=== PATIENT | female | born 1990 | race Asian ===

== ENCOUNTER 2019-06-02 18:25 | Emergency (ER) | payer OTHER ==
--- NOTE | 2019-06-02 19:07 | ED ---
Laceration/Wound HPI - HPI Summary HPI Summary: Patient is a 29-year-old female here with a left fifth finger laceration. Patient has a 0.5 center laceration to the tip of her left finger. Patient sustained a laceration while cutting cabbage. Incident occurred 30 minutes ago. Patient is up-to-date on vaccines. Patient has no numbness or tingling. Patient has full range of motion in her finger. Medications reviewed. - History of Current Complaint Stated Complaint: LEFT HAND PINKY LAC PER PT Time Seen by Provider: 06/02/19 18:58 Hx Obtained From: Patient Mechanism of Injury: Sharp/Blunt Trauma Onset/Duration: Sudden Onset Pain Intensity: 1 PMH/Surg Hx/FS Hx/Imm Hx Previously Healthy: Yes Infectious Disease History: No Infectious Disease History: Denies: Traveled Outside the [place] in Last 30 Days - Family History Known Family History: Positive: Non-Contributory - Social History Alcohol Use: None Substance Use Type: Reports: None Smoking Status (MU): Never Smoked Tobacco Review of Systems Constitutional: Negative Eyes: Negative ENT: Negative Cardiovascular: Negative Gastrointestinal: Negative Genitourinary: Negative All Other Systems Reviewed And Are Negative: Yes Physical Exam - Summary Physical Exam Summary: Vital Signs Reviewed: Yes A+Ox3, no distress Eyes: Conjunctiva Clear ENT: Hearing grossly normal neck: supple Respiratory: Positive: No respiratory distress, No accessory muscle use Cardiovascular: skin color reflect adequate perfusion Musculoskeletal Exam: CHARLES x 4 without difficulty Neurological: Positive: Alert, ambulatory without difficulty Skin: 0.5 cm laceration to the tip of the fifth finger on the left hand. Full range of motion in all joints. Vital Signs On Initial Exam: Initial Vitals Temp Pulse Resp BP Pulse Ox 98.5 F 71 14 112/84 97 06/02/19 18:30 06/02/19 18:30 06/02/19 18:30 06/02/19 18:30 06/02/19 18:30 Procedures - Laceration/Wound Repair 1 Location: Other - left 5th finger Description: Linear Length, Depth and Shape: 0.5 cm, superficial Betadine Prep?: No Irrigated w/ Saline (ccs): 100 Laceration/Wound Explored: clean Closure: Skin Adhesive Diagnostics - Vital Signs Vital Signs Temp Pulse Resp BP Pulse Ox 06/02/19 18:30 98.5 F 71 14 112/84 97 - Laboratory Lab Statement: Any lab studies that have been ordered have been reviewed, and results considered in the medical decision making process. Laceration Repair Course/Dx - Course Course Of Treatment: Patient is here with a small laceration to her left fifth digit. Patient is up-to-date on tetanus. Patient has no evidence of tendon laceration. Patient had her laceration glued with Dermabond. - Clinical Impression Provider Diagnoses: Laceration of left little finger Discharge ED - Sign-Out/Discharge Documenting (check all that apply): Patient Departure Patient Received Moderate/Deep Sedation with Procedure: No - Discharge Plan Condition: Stable Disposition: HOME Patient Education Materials: Laceration (ED) Referrals: No Primary Care Phys,NOPCP [Primary Care Provider] - Additional Instructions: Please do not use any bacitracin or antibiotic ointment on on your cut Please wash her wound lightly with soap on a daily basis Please return if you have redness, drainage, warmth at the cut - Billing Disposition and Condition Condition: STABLE Disposition: Home - Attestation Statements Document Initiated by Merna: Brook
[2019-06-02 19:15] VITALS: BP 0/0
== END 2019-06-02 19:14 | disposition home or self-care (01) ==
LOC: ED 18:25
DX: S61.217A Laceration without foreign body of left little finger without damage to nail, initial encounter (principal); W26.0XXA Contact with knife, initial encounter; Y93.G1 Activity, food preparation and clean up; Y92.9 Unspecified place or not applicable
CPT/HCPCS: 12001; 99282